=== PATIENT | female | born 1970 | race Caucasian/White ===

== ENCOUNTER 2016-08-22 08:31 | Emergency (ER) | payer OTHER ==
[~2016-08-22] VITALS: Ht 162.6 cm; Wt 95.3 kg
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
[2016-08-22] MEDS ORDERED: IBUPROFEN 600 MG TABLET PO ONE ×2 (08:42→09:00)
[2016-08-22 09:35] VITALS: BP 141/95
== END 2016-08-22 09:47 | disposition home or self-care (01) ==
LOC: ER 08:33
DX: S93.401A Sprain of unspecified ligament of right ankle, initial encounter (principal); G43.909 Migraine, unspecified, not intractable, without status migrainosus; V43.52XA Car driver injured in collision with other type car in traffic accident, initial encounter; Y93.89 Activity, other specified; Y92.413 State road as the place of occurrence of the external cause; Y99.8 Other external cause status
CPT/HCPCS: 73000; 73610; 99284; A4606; Z7610